=== PATIENT | female | born 1980 | race Caucasian/White ===

== ENCOUNTER 2020-06-11 00:43 | Emergency (ER) | payer BC, OTHER ==
[~2020-06-11] VITALS: Ht 157.5 cm; Wt 56.7 kg
[~2020-06-11 00:43] MED LIST: ASPIRIN EC81 M1 PO; CLONIDINE HCL0.2 M2 PO; HYDROCODON-ACE1 EA11; NEURONTIN600 MG PO; SEROQUEL XR 30300 M1 PO; ZOCOR 20 MG TAB20 M1 PO
[2020-06-11 02:17] LABS: HEMOGLOBIN 11.6 gm/dL (12.0-15.0); MCH 28.6 pg (26.0-34.0); MCHC 33.2 g/dL (28.0-37.0); MCV 86.2 fL (80.0-100.0); RBC 4.06 mil/uL (4.20-5.00); RDW 13.5 % (10.5-14.5); WBC 12.7 thou/uL (4.0-11.0)
[2020-06-11 02:30] LABS: ANION GAP 12 mmol/L (7-16); BUN 8 mg/dL (7-18); CALCIUM 8.9 mg/dL (8.5-10.1); CHLORIDE 104 mmol/L (98-107); CO2 21 mmol/L (21-32); CREATININE 0.9 mg/dL (0.6-1.0); GLUCOSE 123 mg/dL (74-106); POTASSIUM 4.5 mmol/L (3.5-5.1); SODIUM 137 mmol/L (136-145)
[2020-06-11] MEDS ORDERED: COLACE100 MG PO (02:30)
[2020-06-11] MEDS ORDERED: FISH OIL 1,001000 M2 PO (02:31)
[2020-06-11] MEDS ORDERED: FETZIMA40 MG PO (02:31)
[2020-06-11] MEDS ORDERED: BUSPIRONE HCL10 MG PO (02:32)
[2020-06-11] MEDS ORDERED: BARIATRIC MV-I1 EACH PO (02:32)
[2020-06-11] MEDS ORDERED: LUNESTA2 MG PO (02:33)
[2020-06-11 02:39] LABS: ALBUMIN 3.2 g/dL (3.4-5.0); DIRECT BILIRUBIN < 0.1 mg/dL (<0.1-0.2); LIPASE 118 U/L (73-393); SGOT 32 U/L (15-37); SGPT 25 U/L (30-65); TOTAL BILIRUBIN 0.7 mg/dL (0.2-1.0); TOTAL PROTEIN 6.4 g/dL (6.4-8.2); TROPONIN-I <0.06 ng/mL (<0.06)
[2020-06-11 05:15] LABS: APTT 20.6 Seconds (24.5-32.8); PROTIME 10.4 Seconds (9.3-11.4)
[2020-06-11 06:29] LABS: URINE BILIRUBIN NEGATIVE (Negative); URINE BLOOD 2+ (Negative); URINE CLARITY CLEAR; URINE COLOR YELLOW; URINE GLUCOSE-RANDOM* NEGATIVE (Negative); URINE KETONES NEGATIVE (Negative); URINE LEUKOCYTES-REFLEX NEGATIVE (Negative); URINE NITRITE-REFLEX NEGATIVE (Negative); URINE PROTEIN (DIPSTICK) NEGATIVE (Negative); URINE UROBILINOGEN 0.2 E.U./dl (0.2-1.0)
[2020-06-11 06:53] LABS: BACTERIA-REFLEX None Seen /HPF (None Seen); CASTS None Seen /LPF (None Seen); CRYSTALS None Seen /LPF (None Seen); SQUAMOUS 4-10 Moderate /LPF (0-3); URINE RBC 3-10 Few /HPF (0-2); URINE WBC-REFLEX 0-5 Rare /HPF (0-5)
[2020-06-11 14:21] VITALS: BP 116/72
== END 2020-06-11 10:15 | disposition short-term general hospital (02) ==
LOC: ER 00:43
PROVIDERS: Emergency Medicine
DX: K63.1 Perforation of intestine (nontraumatic) (principal); R11.2 Nausea with vomiting, unspecified; F32.9 Major depressive disorder, single episode, unspecified; Z20.828 Contact with and (suspected) exposure to other viral communicable diseases; Z98.890 Other specified postprocedural states; Z79.899 Other long term (current) drug therapy; Z91.040 Latex allergy status; Z87.891 Personal history of nicotine dependence